=== PATIENT | female | born 1995 | race American Indian/Alaskan Native ===

== ENCOUNTER 2017-02-26 11:29 | Emergency (ER) | payer BC ==
[2017-02-26 11:42] VITALS: BP 134/94
[2017-02-26] MEDS ORDERED: MOTRIN PO ONE (11:44)
[2017-02-26] MEDS ORDERED: XYLOCAINE 2% INFILTRATI ONE (11:44)
--- NOTE | 2017-02-26 12:01 | Emergency Department Report ---
Upper Extremity - HPI Chief Complaint: Extremity Problem,Nontraumatic Stated Complaint: RIGHT FINGER NEEDS RING OFF, SWOLLEN Time Seen by Provider: 02/26/17 11:44 Upper Extremity: Right Ring Finger (some visible swelling right) Occurred When: Today Mechanism: Other Symptoms: Yes Pain with Movement, Yes Swelling (visible swelling distal finger beyond ring), No Deformity, No Limited Range of Movement, No Bruising/Ecchymosis , No Laceration or Abrasion Other History: 21-year-old female past medical history ED Review of Systems ROS: Stated complaint: RIGHT FINGER NEEDS RING OFF, SWOLLEN Other details as noted in HPI Constitutional: denies: chills, fever Eyes: denies: eye pain, eye discharge, vision change ENT: denies: ear pain, throat pain Respiratory: denies: cough, shortness of breath, wheezing Cardiovascular: denies: chest pain, palpitations Endocrine: no symptoms reported Gastrointestinal: denies: abdominal pain, nausea, diarrhea Genitourinary: denies: urgency, dysuria, discharge Musculoskeletal: denies: back pain, joint swelling, arthralgia Skin: denies: rash, lesions Neurological: denies: headache, weakness, paresthesias Psychiatric: denies: anxiety, depression Hematological/Lymphatic: denies: easy bleeding, easy bruising ED Past Medical Hx - Past Medical History Previous Medical History?: No Additional medical history: Multiple abscess - Surgical History Past Surgical History?: No - Social History Smoking Status: Never Smoker Substance Use Type: Alcohol - Medications Home Medications: Home Medications Medication Instructions Recorded Confirmed Last Taken Type Acetaminophen/Codeine [Tylenol #3] 1 tab PO Q6H PRN #20 tab 08/24/15 Unknown Rx Cephalexin [Keflex] 500 mg PO Q6HR #40 capsule 08/24/15 Unknown Rx Ibuprofen [Motrin] 800 mg PO Q8HR PRN #25 tablet 02/26/17 Unknown Rx Upper Extremity Exam - Exam General: Vital signs noted. No distress. Alert and acting appropriately. Head and Torso: No HEENT Abnormality, No Neck Tenderness, No Chest/Lungs Abnormality, No Abdominal Tenderness, No Back Tenderness Shoulder Exam: Yes Normal Range of Motion in Shoulder, No Shoulder Tenderness, No Clavicle Tenderness, No Shoulder Deformity, No AC Joint Tenderness Arm Exam: No Arm/Humerus Tenderness, No Arm Deformity Elbow: No Elbow Tenderness, No Normal Range of Motion in Elbow, No Elbow Deformity Forearm: No Forearm Tenderness, No Forearm Deformity, No Pain with Pronation, No Pain with Supination Wrist: Yes Normal ROM in Wrist, No Wrist Tenderness, No Wrist Deformity, No Snuffbox Tenderness, No Pain with Axial Thumb Compression Hand: Yes Digit Tenderness (distal swelling and tenderness right ring finger beyond the MCP joint beyond ring site), Yes Normal ROM in Digit(s) (range of motion PIP DIP and MCP intact on exam), No Hand Tenderness, No Hand Deformity, No Digit(s) Deformity, No Tendon Dysfunction CMS Exam: Yes Normal Distal Pulses (distal capillary refill less than 1 second all fingers including ring finger), Yes Normal Capillary Refill, No Broken Skin , No Normal Distal Sensation (distal sensation intact in ring finger on clinical exam. Proprioception and 2. discrimination intact) Hand L/R Back: 1 - Some mild swelling of finger ED Course Vital Signs 02/26/17 02/26/17 11:35 11:53 Temperature 98.1 F Pulse Rate 90 Respiratory 18 22 Rate Blood Pressure 134/94 O2 Sat by Pulse 100 Oximetry - Nerve Block Consent Obtained: verbal consent Time Out Performed: No Local Anesthetic Used: Lidocaine 2% Amount of anesthesia used: 5 Side: right Nerve Blocks: digital Procedure Successful: Yes Complications: none Patient Tolerated Procedure: well ED Medical Decision Making - Medical Decision Making A/P: Ring removal index finger, foreign body removal 1-successful removal of ring from ring finger after local/digital anesthesia via digital block and manual traction on finger and ring. Procedure tolerated well, no difficulties or complications or removing the ring, no lacerations 2-distal capillary refill intact distal sensation intact post removal of ring 3-Motrin 800 when necessary, I advised patient to ice finger for next few hours intermittently for a few seconds at a time to reduce swelling and to keep finger elevated and to not place ring over finger. Critical care attestation.: If time is entered above; I have spent that time in minutes in the direct care of this critically ill patient, excluding procedure time. ED Disposition Clinical Impression: Ring or other jewelry causing external constriction, initial encounter Disposition: DC-01 TO HOME OR SELFCARE Is pt being admited?: No Does the pt Need Aspirin: No Condition: Stable Prescriptions: Ibuprofen [Motrin] 800 mg PO Q8HR PRN #25 tablet PRN Reason: Pain Referrals: PRIMARY CARE, [Primary Care Provider] - 3-5 Days [facility] [Outside] - 3-5 Days Forms: Work/School Release Form(ED) Time of Disposition: 12:15
== END 2017-02-26 12:35 | disposition home or self-care (01) ==
LOC: ED 11:29
DX: S60.444A External constriction of right ring finger, initial encounter (principal); W49.04XA Ring or other jewelry causing external constriction, initial encounter; Y93.89 Activity, other specified; Y92.89 Other specified places as the place of occurrence of the external cause; Y99.8 Other external cause status; Z88.2 Allergy status to sulfonamides; Z88.8 Allergy status to other drugs, medicaments and biological substances
CPT/HCPCS: 99282